=== PATIENT | female | born 1970 | race African-American/Black ===

== ENCOUNTER 2017-07-11 07:18 | Emergency (ER) | payer MEDICAID ==
[~2017-07-11] VITALS: Ht 152.4 cm; Wt 71.0 kg
[~2017-07-11 07:18] MED LIST: ALBU6.7H INH; FLUT1DIS3 INH; METH4TAB17 PO
[2017-07-11 11:47] VITALS: BP 111/72
== END 2017-07-11 12:35 | disposition left against medical advice (07) ==
LOC: ER 09:11
DX: J11.1 Influenza due to unidentified influenza virus with other respiratory manifestations (principal); Z53.21 Procedure and treatment not carried out due to patient leaving prior to being seen by health care provider

== ENCOUNTER 2018-07-06 13:59 | Emergency (ER) | payer MEDICAID ==
[~2018-07-06] VITALS: Ht 165.1 cm; Wt 64.0 kg
[2018-07-06] MEDS ORDERED: ACETAMINOPHEN 325MG TABLET PO PRN (16:45)
[2018-07-06 17:30] LABS: BASOPHILS % 0.8 % (0.0-2.0); EOSINOPHILS % 3.9 % (0.0-5.0); HEMATOCRIT. 40.2 % (36.0-48.0); HEMOGLOBIN. 13.6 g/dL (12.0-16.0); LYMPHOCYTES % 39.1 % (20.0-50.0); MEAN CORPUSCULAR VOLUME 91.4 fL (81.0-99.0); MONOCYTES % 9.9 % (2.0-8.0); NEUTROPHILS % 46.3 % (40.0-76.0); PLATELET 301 x1000/uL (130-400)
[2018-07-06 17:35] LABS: CHLORIDE 105 mEq/L (98-107)
[2018-07-06 18:00] LABS: B-HCG QUANTITATIVE 8839 mIU/mL (<3)
[2018-07-06 18:25] LABS: CLARITY URINE CLEAR (CLEAR); COLOR URINE YELLOW (YELLOW); KETONES URINE TRACE (NEGATIVE); LEUKOCYTE ESTERASE URINE NEGATIVE (NEGATIVE); NITRITE URINE NEGATIVE (NEGATIVE); OCCULT BLOOD URINE NEGATIVE (NEGATIVE); PROTEIN URINE NEGATIVE (NEGATIVE); SPECIFIC GRAVITY URINE 1.027 (1.005-1.030)
[2018-07-06 18:47] LABS: *AMPHETAMINES SCREEN URINE NEGATIVE (NEGATIVE); *BARBITURATES SCREEN URINE NEGATIVE (NEGATIVE); *BENZODIAZEPINES SCREEN URINE NEGATIVE (NEGATIVE); *COCAINE SCREEN URINE NEGATIVE (NEGATIVE)
[2018-07-06 18:48] LABS: CANNABINOID URINE SCREEN NEGATIVE (NEGATIVE); METHADONE URINE SCREEN NEGATIVE (NEGATIVE); OPIATES URINE SCREEN NEGATIVE (NEGATIVE); PHENCYCLIDINE URINE SCREEN NEGATIVE (NEGATIVE)
[2018-07-06 19:14] VITALS: BP 111/73
== END 2018-07-06 19:14 | disposition home or self-care (01) ==
LOC: ER 13:59
DX: O34.81 Maternal care for other abnormalities of pelvic organs, first trimester (principal); J45.909 Unspecified asthma, uncomplicated; Z3A.01 Less than 8 weeks gestation of pregnancy
CPT/HCPCS: 36415; 76801; 80048; 80305; 81003; 81025; 84702; 85025; 99285

== ENCOUNTER 2019-10-12 13:13 | Emergency (ER) | payer MEDICAID ==
[~2019-10-12] VITALS: Ht 152.4 cm; Wt 74.0 kg
[2019-10-12 16:22] VITALS: BP 125/66
== END 2019-10-12 18:54 | disposition left against medical advice (07) ==
LOC: ER 13:13
DX: N93.8 Other specified abnormal uterine and vaginal bleeding (principal); Z53.21 Procedure and treatment not carried out due to patient leaving prior to being seen by health care provider

== ENCOUNTER 2024-12-31 10:28 | Emergency (ER) | payer MEDICAID ==
[~2024-12-31] VITALS: Ht 172.7 cm; Wt 77.3 kg
[~2024-12-31 10:28] MED LIST changes: -ALBU6.7H INH; +ALBU6.7H15 INH
[2024-12-31 10:34] VITALS: O2SAT 96
[2024-12-31 10:53] VITALS: BP 131/75; PULSE 86; RESP 19; TEMP 36.9; O2SAT 95
[2024-12-31] MEDS: IBUPROFEN 600MG TABLET PO ONE (11:45)
[2024-12-31] MEDS ORDERED: IBUP-2029 MT (12:00)
== END 2024-12-31 13:11 | disposition home or self-care (01) ==
LOC: ER 10:28
DX: S82.51XA Displaced fracture of medial malleolus of right tibia, initial encounter for closed fracture (principal); J45.909 Unspecified asthma, uncomplicated; Z79.899 Other long term (current) drug therapy; Z98.890 Other specified postprocedural states; W10.9XXA Fall (on) (from) unspecified stairs and steps, initial encounter; Y93.01 Activity, walking, marching and hiking; Y92.89 Other specified places as the place of occurrence of the external cause; Y99.8 Other external cause status
CPT/HCPCS: 73610; 29515; 99283; Z7610